=== PATIENT | female | born 1990 ===

== ENCOUNTER 2018-02-19 10:43 | Day surgery (SDC) | payer MEDICAID ==
[~2018-02-19 10:43] MED LIST: Buffered Lidocaine 0.9% SYRIN* 5 ML/SYR SYRINGE INTRADERM ONE; Buffered Lidocaine 0.9% SYRIN* 5 ML/SYR SYRINGE ONE; Dexamethasone IV* 4 MG/ML 1 ML (4 MG) IV SLOW PU ONE; Dexamethasone IV* 4 MG/ML 1 ML (4 MG) ONE; Famotidine TAB* 20 MG PO ONE
[2018-02-19] MEDS ORDERED: Dexamethasone IV* 4 MG/ML 1 ML (4 MG) ONE ×2 (10:54)
[2018-02-19] MEDS ORDERED: Famotidine TAB* 20 MG ONE ×3 (10:54→11:22)
[2018-02-19] MEDS ORDERED: Buffered Lidocaine 0.9% SYRIN* 5 ML/SYR SYRINGE ONE ×2 (10:54)
[2018-02-19] MEDS ORDERED: Lidocaine 1% INJ* 10 MG/ML 30 ML SDV ONE ×2 (12:14)
[2018-02-19] MEDS ORDERED: Bupivacaine 0.5% PF 10 ML VIAL INJ ONE ×2 (12:14)
[2018-02-19] MEDS ORDERED: fentaNYL* 50 MCG/ML 2 ML VIAL (100 MCG VIAL) IV PRN (12:17)
[2018-02-19] MEDS ORDERED: DiMENhydriNATE IV* 50 MG/ML VIAL IV PUSH PRN (12:17)
[2018-02-19] MEDS ORDERED: Acetaminophen TAB* 325 MG PO PRN (12:17)
[2018-02-19] MEDS ORDERED: oxyCODONE TAB* 5 MG TAB PO PRN (12:17)
[2018-02-19] MEDS ORDERED: Naloxone* 0.4 MG/ML 1 ML VIAL IV PRN (12:17)
[2018-02-19] MEDS ORDERED: HYDROcodone/ACETAMIN 5-325 MG* 1 TAB PO PRN (12:17)
[2018-02-19] MEDS ORDERED: fentaNYL* 50 MCG/ML 2 ML VIAL (100 MCG VIAL) ONE ×2 (12:24)
[2018-02-19] MEDS ORDERED: Midazolam* 1 MG/ML 5 ML VIAL (5 MG) ONE ×2 (12:24)
[2018-02-19] MEDS ORDERED: Propofol* 10 MG/ML 20 ML BTL IV PUSH ONE ×2 (12:31)
[2018-02-19] MEDS ORDERED: Lidocaine 2% PF * 5 ML VIAL ONE ×2 (12:31)
[2018-02-19] MEDS ORDERED: Ondansetron INJ* 2 MG/ML VIAL ONE ×2 (12:51)
--- NOTE | 2018-02-19 13:24 | BRIEFOPN ---
Brief Operative Note - Surgery Procedures: 02/19/18 Op NOte (dictated) Pre-op dx: right breast lump Post-op dx: same Procedure: excision right breast lump Surgeon: Arturo Asst: none Anesth: local-MAC EBL: 5cc Complications: none Abx: not indicated SCDs on during surgery Pt. tolerated procedure well and was transferred to in a stable condition. [facility]
[2018-02-19] MEDS ORDERED: Ibuprofen TAB* 600 MG PO PRN (13:25)
[2018-02-19 13:53] VITALS: BP 114/78
--- NOTE | 2018-02-19 20:56 | OP ---
CC: [facility] OPERATIVE REPORT: DATE OF OPERATION: 02/19/18 DATE OF : 89 SURGEON: Ania Morris MD SERIALS LIBRARIAN: There was no assistant front end manager for this case. PRE-OP DIAGNOSIS: Right breast lump. POST-OP DIAGNOSIS: Right breast lump. INDICATIONS: The patient is a 27-year-old female presented to the office with a symptomatic right br east lump prompting the plan for surgical intervention. DESCRIPTION OF PROCEDURE: She was brought to the operating room, placed on the OR table in a supine position, and given IV sedation. The right breast was prepped and draped in the usual sterile fashio n. After infiltrating with local anesthetic, a curvilinear incision was made over the lump and subcu taneous tissue was divided with electrocautery to excise the mass, which was rather small. It was mcpherson nded off as a specimen, and there appeared to be some extruded pieces from a duct that might be consi stent with papillomatous lesions. These were handed off with the specimen. Once hemostasis was adequ ate, closure was accomplished with 3-0 Vicryl in the subcutaneous layer and the skin was closed with 4-0 Prolene in a subcuticular fashion. Steri-Strips and a dry sterile dressing were applied. All sp onge and instrument counts were correct. The patient tolerated the procedure well and was transferre d to Recovery in a stable condition. [id number]/[facility] #: [id number]
== END 2018-02-19 13:54 | disposition home or self-care (01) ==
LOC: OR 10:43
PROVIDERS: ATTEND Surgery
DX: D24.1 Benign neoplasm of right breast (principal); F41.8 Other specified anxiety disorders; G43.909 Migraine, unspecified, not intractable, without status migrainosus
CPT/HCPCS: 81025; 88307; A9270-GY; J1100; J2250; J2405; J2704; J3010